=== PATIENT | female | born 1985 | race Caucasian/White ===

== ENCOUNTER 2024-06-11 20:56 | Observation (INO) | payer BC, SELFPAY ==
[2024-06-11 15:22] VITALS: BP 160/97; BMI 32.4
[2024-06-11 15:42] LABS: % Basophils 0.4 % (0-2); % Immature Granulocytes 0.4 % (0-0.5); % Lymphocytes 16.4 % (20.5-51.1); % Monocytes 5.7 % (1.7-9.3); % Neutrophils 76.1 % (42.2-75.2); Absolute Basophils 0.1 10^3/uL (0-0.2); Absolute Eosinophils 0.1 10^3/uL (0-0.7); Absolute Immature Granulocytes 0.1 10^3/uL (0-0.05); Absolute Lymphocytes 2.3 10^3/uL (1.2-3.4); Absolute Monocytes 0.8 10^3/uL (0.1-0.6); Absolute Neutrophils 10.7 10^3/uL (1.4-6.5); Hematocrit 38.5 % (37.0-47.0); Hemoglobin 13.8 g/dL (12.0-16.0); Mean Corp Hgb Conc. 35.8 g/dL (33.0-37.0); Mean Corpuscular Volume 83.7 fL (81.0-99.0); Mean Platelet Volume 9.4 fL (7.4-10.4); Nucleated Red Blood Cells % 0 %; Platelet Count 320 10^3/uL (130-400); Red Cell Dist. Width 11.9 % (11.5-14.5); White Blood Cell Count 14.1 10^3/uL (4.8-10.8)
[2024-06-11 15:54] LABS: ALT (SGPT) 104 U/L (0-35); AST (SGOT) 39 U/L (14-36); Albumin 4.3 g/dl (3.5-5.0); Alkaline Phosphatase 138 U/L (38-126); Blood Urea Nitrogen 4 mg/dl (7-17); Calcium 9.4 mg/dl (8.4-10.2); Carbon Dioxide 25 mmol/L (22-30); Chloride 106 mmol/L (98-107); Estimated Creatinine Clearance 98 ml/min; Glucose 107 mg/dl (70-99); Lipase 56 U/L (23-300); Potassium 3.7 mmol/L (3.5-5.1); Sodium 138 mmol/L (135-145); Total Bilirubin 0.5 mg/dl (0.2-1.3); Total Protein 7.1 g/dl (6.3-8.2); eGFR > 60.00
--- NOTE | 2024-06-11 16:43 | ED.GENMED ---
History of Present Illness
General
Chief Complaint: Abdominal Pain
Time Seen by Provider: 06/11/24 16:43
History of Present Illness
History of Present Illness:
HPI: The patient presents with upper abdominal pain without nausea, vomiting, or diarrhea. This started 3 days ago but was never really severe. Yesterday she barely had a discomfort. The pain is in the upper abdomen equally on the right, center,
and left. She has no lower discomfort. She does have a history of GERD and took Mylanta today and started taking omeprazole yesterday. She went to urgent care who suspected GERD. She does take Ozempic and was concerned about the possibility of
pancreatitis as well.
EXAM:
GENERAL: Well appearing in no distress
HEENT: Moist oral mucosa
CARDIOVASCULAR: No murmurs, normal heart rate, regular rhythm, No chest wall tenderness
PULMONARY: No respiratory distress, breath sounds are clear and equal
ABDOMEN: Soft with no peritoneal signs, no tenderness, negative Rutherford sign
NEUROLOGIC: Excellent strength all extremities, no coordination deficits
PSYCHIATRIC: Appropriate mental status, normal insight and judgement
EXTREMITIES: Nontender, no edema, moves all extremities equally
SKIN: No rash, no lesions
TIME OF INITIAL ENCOUNTER: 4:50 PM
NUMBER AND COMPLEXITY OF PROBLEMS ADDRESSED AT THE ENCOUNTER
� Chronic conditions affecting care: Denies any significant past medical history, history of GERD
� Acute Exacerbation and/or Progression of Chronic Illness: This is an acute problem
� Differential Diagnosis includes: Exacerbation of GERD, pancreatitis has been ruled out based on lipase, cholecystitis, biliary colic
AMOUNT AND/OR COMPLEXITY OF DATA TO BE REVIEWED AND ANALYZED
� I performed an independent evaluation of and my interpretation is:
EKG:
CT:
X-rays:
Laboratory Studies: AST 39, ALT 104, white count elevated 14.1. Otherwise chemistries unremarkable.
Other: Ultrasound imaging shows gallstones with no sign of cholecystitis
� Review of other/old records: No old records available for review in [facility]
� Clinical information was obtained by an independent historian: I spoke to sister at bedside
� Prescriptions/Medications Considered but not given:
� Further testing considered but not performed: Considered CT imaging however the patient has no tenderness on exam and symptoms are only located in the upper abdomen.
RISK OF COMPLICATIONS AND/OR MORBIDITY OR MORTALITY OF PATIENT MANAGEMENT
� Social determinants of health affecting care: Lives at home
� Discussion with other providers: Discussed case with Dr. Dawn who accepts to his service for further management and recommend Zosyn, n.p.o.
� Escalation of care including admission/observation vs risk of discharge considered: The patient presents with upper abdominal discomfort but has no tenderness on exam. However she does have a elevated white count along with
some mild transaminase elevation. Ultrasound imaging to be obtained. She appears very comfortable on initial evaluation. On reevaluation around 8 PM, the patient has recurrence of pain and request something for pain. Dr. Elizondo recommend she
stay in the hospital.
Phy Exam
Physical Exam
Physical Exam:
See HPI
Course
Orders/Labs/Results
Orders:
Orders
06/11/24 15:33
Complete Blood Count/With Diff Urgent
Comprehensive Metabolic Panel Urgent
Lipase Urgent
06/11/24 16:44
US Abdomen Complete/Upper Urgent
Comment:
Reason For Exam: upper pain abnormal LFTs and WBC 14
06/11/24 19:58
0.9% Sodium Chloride 1000 ml [Nss] 1,000 ml IV BOLUS
HYDROmorphone [Dilaudid] 1 mg IV NOW STA
Piperacillin/Tazo 3.375 Gram [Zosyn] 3.375 gram in 50 ml IV NOW
06/11/24 20:33
Admit/Transfer Patient As Directed
Co-Sign Provider:
Level of Care: Observation services
Assign to:: Medical/Surgical
Physician / Group: Dr. Jacques Dawn
Diagnosis: CHOLELITHIASIS
PRN Pain Medication Management As Directed
May give lesser potent ordered pain med per pt: Yes
preference::
Protocol:: Medication orders for pain may be administered in a
manner that supports deferring to patient preference
when the pt is:
- Requesting an ordered lesser potent pain medication.
Least to most potent pain medications are defined
as: acetaminophen < NSAID < tramadol < opioids
(morphine, oxycodone, hydromorphone).
- Requesting a lesser dose of the same medication IF
ORDERED.
- Requesting a less intrusive route of administration
if both routes are prescribed by the provider (PO <
IV).
06/11/24 20:35
Code Status As Directed
Resuscitation Status: Full Code
Abnormal Lab Results
06/11/24
15:33
WBC 14.1 H 10^3/uL
(4.8-10.8)
Abs Immat Gran (auto) 0.1 H 10^3/uL
(0-0.05)
Absolute Neuts (auto) 10.7 H 10^3/uL
(1.4-6.5)
Absolute Monos (auto) 0.8 H 10^3/uL
(0.1-0.6)
Neutrophils % 76.1 H %
(42.2-75.2)
Lymphocytes % 16.4 L %
(20.5-51.1)
BUN 4 L mg/dl
(7-17)
Glucose 107 H mg/dl
(70-99)
AST 39 H U/L
(14-36)
ALT 104 H U/L
(0-35)
Alkaline Phosphatase 138 H U/L
(38-126)
06/11/24 15:33
06/11/24 15:33
Vital Signs
Initial and Last Documented VS:
Initial Vital Signs
Temp Pulse Resp BP Pulse Ox
99.5 F 99 18 160/97 100
06/11/24 15:22 06/11/24 15:22 06/11/24 15:22 06/11/24 15:22 06/11/24 15:22
Last Documented Vital Signs
Temp Pulse Resp BP Pulse Ox
99.2 F 103 18 140/98 96
06/11/24 19:16 06/11/24 19:16 06/11/24 19:16 06/11/24 19:16 06/11/24 19:16
*Critical Care Note
Total Time (30-74mins, 75-104mins- exclusive of procedures): Not Applicable
ED Attending Note
-
Portions of this chart may have been created with voice recognition software.� Occasional wrong word or��sound alike� substitutions may have occurred due to the inherent limitations of voice recognition software.
Discharge Plan
Departure
Patient Disposition: Admit
Date of Disposition: 06/11/24
Time of Disposition: 19:56
Presentation/result/management discussed w/ accepting MD/: turner
Discharge Problem:
Symptomatic cholelithiasis
Prescriptions:
No Action
Ozempic 0.25 mg or 0.5 mg (2 mg/3 mL) Pen Injector
0.25 mg SC QWEEK
Rx Instructions:
for 4 weeks
Referrals:
Deanna Castellanos NP [Family Provider] -
Discharge Date and Time
Print Language: PORTUGUESE
[2024-06-11 17:26] VITALS: BP 161/99
[2024-06-11 17:34] VITALS: BP 167/97
[2024-06-11 19:16] VITALS: BP 140/98
[2024-06-11] MEDS: DILAUDID 1 MG IV (20:09)
[2024-06-11] MEDS: NSS 1000 IV ×2 (20:16→22:04)
[2024-06-11] MEDS: ZOSYN 50 IV (20:17)
--- NOTE | 2024-06-11 20:43 | HPS.HSE ---
Addendum entered and electronically signed by Martir Gonsalves MD 06/12/24 10:23:
I saw and examined the patient independently.
The Stripper Cutter Machine's note was reviewed and I agree with the note, assessment and plan except where noted below.
Comment: This is a 38-year-old female currently on Ozempic who presents with a 4-day history of intermittent postprandial right upper quadrant abdominal pain. Ultrasound, blood work and exam all consistent with acute cholecystitis versus biliary
colic.
Will plan for a laparoscopic cholecystectomy in the OR today.
Risks/Benefits/Alternatives, expected postoperative course and possible complications (bleeding, infection, injury to surrounding structures, acute/chronic pain) discussed at length. Patient wishes to proceed with surgery. All questions answered.
Consent obtained.
I spent roughly 60 minutes in total for the care of this patient today including direct patient care and counseling, reviewing labs, imaging, coordination of care, as well as documentation.
Original Note:
Family Physician
-
Family Physician: Deanna Castellanos
Chief Complaint
-
Abdominal pain
History of Present Illness
Patient is a 38-year-old female with not significant past medical history. Patient is currently taking Ozempic 0.25mg weekly for weight loss. Patient presented to [place] ED today for evaluation of abdominal discomfort that started three days
ago. She stated that morning she started with generalized pain throughout abdomen that was 'burning.' It progressed to RUQ and LUQ with sharp pain. She stated that she tried Mylanta with minimal improvement. She maintained generalized
burning pain throughout abdomen and sharp pain in upper quadrants since onset . She denies anything specific that makes it better or worse. She did say yesterday she felt relativity symptom free yesterday, but pain returned this morning.
Over the three days she attempted going to ER 2x and left following too long of a wait, and went to Urgent Care where they sent her home with a diagnosis of gastric reflux. She denies chest pain, shortness of breath, nausea, vomiting, diarrhea,
constipation, fevers, and no urinary discomfort. Appetite has not been effected. She reports last menstrual period on 06/05/2024. Patient to be admitted to Dr. López maldonado.
Medical History
Past Medical History
Past Medical History: Reports None
Past Surgical History: Reports None
Social History
Tobacco: Non-smoker
Alcohol: Occasional (weekends)
Drug: None
Personal:
Living: With Family
Employment: Employed
Family History
Family History: Other (mom - cholecystectomy; uncle - gallstones)
Allergies / Home Medications
Allergies reflects when Allergies were last updated in [employer].
Home Medications with original date entered in [employer]
Allergy/Medication List:
Allergies
Allergy/AdvReac Type Severity Reaction Status Date / Time
No Known Allergies Allergy Unverified 06/11/24 15:25
Home Medications Table - record
�Medication �Instructions �Recorded �Confirmed
semaglutide 0.25 mg or 0.5 mg (2 0.25 mg SC QWEEK 06/11/24 06/11/24
mg/3 mL) subcutaneous pen injector
(Ozempic)
Review of Systems
-
History Source: Patient
A 12 point ROS was completed and negative except as noted: Yes
Constitutional: Reports No Symptoms
EENT: Reports No Symptoms
Respiratory: Reports No Symptoms
Cardiac: Reports No Symptoms
Abdomen/GI: Reports Abdominal Pain and Pain
: Reports No Symptoms
Musculoskeletal: Reports No Symptoms
Skin: Reports No Symptoms
Neurological: Reports No Symptoms
Endocrine: Reports No Symptoms
Hematologic/Lymphatic: Reports No Symptoms
Psych: Reports No Symptoms and Calm
Physical Exam
Vital Signs
Vital Signs
Temp Pulse Resp BP Pulse Ox
99.2 F 103 18 140/98 96
06/11/24 19:16 06/11/24 19:16 06/11/24 19:16 06/11/24 19:16 06/11/24 19:16
Physical Exam
General: Well Developed, Well Nourished, No Apparent Distress, Conversant and Pain
HEENT: NormoCephalic, Moist mucous membranes, PERRLA, Mertzon Conjunctivae, Nose Appears Normal and Ears Appear Normal
Respiratory: Clear and Non Labored Respirations
Cardiac: S1/S2 and Regular Rhythm
Breast: Deferred by me
GI: Soft, Non Distended, Normal Bowel Sounds and Tender
Rectal: Deferred by Provider
Genito-urinary: Deferred by me
Musculoskeletal: No Clubbing, No Cyanosis, No Edema and Normal Gait & Station
Skin: Warm, Dry and IV/Catheter Site
Neuro: Awake and AO x 3
Hematologic/Lymphatic: No Lymphadenopathy
Psych: Calm and Intact Judgment/Insight
Laboratory Results
-
06/11/24 15:33
06/11/24 15:33
Laboratory Results
Total Bilirubin 0.5 mg/dl (0.2-1.3) 06/11/24 15:33
AST 39 U/L (14-36) H 06/11/24 15:33
ALT 104 U/L (0-35) H 06/11/24 15:33
Alkaline Phosphatase 138 U/L (38-126) H 06/11/24 15:33
Lipase 56 U/L (23-300) 06/11/24 15:33
Data Reviewed
-
Ultrasound: Report Reviewed by me, Discussed with Physician and Discussed with Patient
Lab Data: Discussed with Physician and Discussed with Patient
Impression/Plan
-
IMPRESSION:
Patient is a 38-year-old female with not significant past medical history. Patient is currently taking Ozempic 0.25mg weekly for weight loss. Patient presented to [place] ED today for evaluation of abdominal discomfort that started three days
ago. She stated that morning she started with generalized pain throughout abdomen that was 'burning.' It progressed to RUQ and LUQ with sharp pain. She stated that she tried Mylanta with minimal improvement. She maintained generalized
burning pain throughout abdomen and sharp pain in upper quadrants since onset . She denies anything specific that makes it better or worse. She did say yesterday she felt relativity symptom free yesterday, but pain returned this morning.
Over the three days she attempted going to ER 2x and left following too long of a wait, and went to Urgent Care where they sent her home with a diagnosis of gastric reflux. She denies chest pain, shortness of breath, nausea, vomiting, diarrhea,
constipation, fevers, and no urinary discomfort. Appetite has not been effected. She reports last menstrual period on 06/05/2024. Patient to be admitted to Dr. Dawn service.
PLAN:
#Cholelithiasis
- Admit to Dr. Dawn
- Zosyn
- NPO
- pain regimen
NPO
Full Code
DVT Prophylaxis: SCDs
[2024-06-11 22:00] VITALS: BMI 32.1
[2024-06-11 22:20] VITALS: BP 149/99
[2024-06-12] MEDS: ZOSYN 50 IV ×3 (02:01→14:24)
[2024-06-12] MEDS: DILAUDID 0.5 MG IV (02:13)
--- NOTE | 2024-06-12 04:40 | PTCARENOTE ---
Patient arrived to unit around 21:45 via stretcher with dx of Cholelithiasis. Upon arrival Patient states pain 1/10 in both upper quadrants of abdomen. Patient AAOX3. Pleasant and cooperative with care. Oriented to unit. Call colon with in reach.
Patients sister in room with patient.
[2024-06-12 07:40] VITALS: BP 120/82
[2024-06-12 08:24] LABS: % Basophils 0.5 % (0-2); % Eosinophils 1.2 % (0-6); % Immature Granulocytes 0.4 % (0-0.5); % Lymphocytes 27.7 % (20.5-51.1); % Monocytes 8.6 % (1.7-9.3); % Neutrophils 61.6 % (42.2-75.2); Absolute Eosinophils 0.1 10^3/uL (0-0.7); Absolute Lymphocytes 2.3 10^3/uL (1.2-3.4); Absolute Monocytes 0.7 10^3/uL (0.1-0.6); Hematocrit 32.9 % (37.0-47.0); Hemoglobin 11.4 g/dL (12.0-16.0); Mean Corp Hgb Conc. 34.7 g/dL (33.0-37.0); Mean Corpuscular Hgb 29.6 pg (27.0-31.0); Mean Corpuscular Volume 85.5 fL (81.0-99.0); Mean Platelet Volume 9.7 fL (7.4-10.4); Nucleated Red Blood Cells % 0 %; Platelet Count 265 10^3/uL (130-400); Red Blood Cell Count 3.85 10^6/uL (4.20-5.40); Red Cell Dist. Width 11.9 % (11.5-14.5); White Blood Cell Count 8.2 10^3/uL (4.8-10.8)
[2024-06-12] MEDS: NSS 1000 IV (08:38)
[2024-06-12 08:58] LABS: ALT (SGPT) 68 U/L (0-35); AST (SGOT) 25 U/L (14-36); Albumin 3.4 g/dl (3.5-5.0); Alkaline Phosphatase 116 U/L (38-126); Blood Urea Nitrogen 6 mg/dl (7-17); Calcium 8.4 mg/dl (8.4-10.2); Carbon Dioxide 22 mmol/L (22-30); Chloride 108 mmol/L (98-107); Estimated Creatinine Clearance 114 ml/min; Glucose 87 mg/dl (70-99); Potassium 3.8 mmol/L (3.5-5.1); Sodium 137 mmol/L (135-145); Total Bilirubin 0.8 mg/dl (0.2-1.3); eGFR > 60.00
--- NOTE | 2024-06-12 10:24 | W.SUR.PREOP ---
Pre-Operative Surgical Note
-
I have examined this patient prior to the performance of the scheduled procedure.
The patient's condition is unchanged from the time of the current History and
Physical and the patient is able to undergo the scheduled procedure.
--- NOTE | 2024-06-12 11:51 | W.IMMPOSTOP ---
Surgical Immed Post Op Note
-
Primary Surgeon: Martir Gonsalves MD
Assisting Surgeon: None
Pre-op Diagnosis: Acute cholecystitis
Post-op Diagnosis: Same
Procedure Performed: Laparoscopic cholecystectomy with cholangiogram
Anesthesia Type: General
Specimen / Cultures: Gallbladder and contents
Estimated Blood Loss: 7 cc
Complications: None
Operative Findings: Mildly inflamed gallbladder with thickened wall and edema in the hepatocystic triangle. A critical view of safety was obtained prior to a cholangiogram which demonstrated fairly long cystic duct and no filling defects. The duct
was ligated with the clip followed by a 0 PDS Endoloop.
POST OP PLAN:
Will discharge home off antibiotics today pending clinical course.
--- NOTE | 2024-06-12 11:52 | OR.RPT ---
Operative Report
Operative Report
Patient Name: Mylene Plummer
: 1985
Date of Operation: 06/12/2024
Preoperative Diagnosis: Acute cholecystitis
Postoperative Diagnosis: Same
Procedure(s):
Laparoscopic Cholecystectomy with Cholangiogram
Surgeon(s):
Dr. Gonsalves
Manager Distribution Center(s):
TRACEY Griffin
Anesthesia: General
Estimated Blood Loss: 7 cc
Urine Output: None
Drains/Lines/Implants: None
Specimens:
1. Gallbladder and contents
HPI/Surgical Indications:
This is a 38-year-old female who presents with a few days of right upper quadrant postprandial abdominal pain. Exam, labs and imaging are consistent with early acute cholecystitis. Risks/Benefits/Alternatives were discussed at length, and the
patient agreed to proceed with surgery.
Findings:
The patient was noted to have mild gallbladder inflammation and edema. A Critical View of Safety was obtained. A cholangiogram showed no filling defects in the biliary system with the Left, Right Anterior, Right posterior hepatic ducts, CHD, cystic
duct and CBD all identified. There was brisk flow of dye into the duodenum.
Procedure Description:
The patient was brought to the Operating Room and placed in the supine position with one arm tucked. Following uneventful induction of general endotracheal anesthesia, an orogastric tube was placed. The abdomen was prepped and draped in the usual
sterile fashion. A timeout was performed confirming the procedure, consent, and that IV antibiotics were infused and sequential compression devices were confirmed to be on. The abdomen was entered using an infraumbilical open Jude technique with a
12 mm trochar. Pneumoperitoneum to 15 mmHg pressure was obtained without difficulty and we confirmed that no injury had occurred during our entry. The patient was positioned in reverse Trendelenberg and rotated with the right side up slightly. Three
(3) 5mm trocars were then placed along the right subcostal margin. The gallbladder was slightly distended but we were able to place a locking grasping forceps was placed on the fundus of the gallbladder where it was then retracted cephalad and to
the right. Using appropriate grasping instruments, the peritoneum overlying the triangle of Calot was incised and extended superiorly on both the anterior and posterior gallbladder vincent. The infundibulum was dissected off the cystic plate. The
cystic triangle was dissected until a critical view of safety was achieved. The cystic artery was medialized, dissected and controlled with 2 proximal clips and 1 distal. The cystic duct/gallbladder junction in turn was identified, dissected
circumferentially and a clip was placed. A ductotomy was made and a cholangiocatheter on an Clark clamp was inserted into the cystic duct. A C-arm was draped and brought into the field. An intra-operative cholangiogram was performed and was noted to
have:
No filling defects in the biliary tree
No significant biliary dilation
Brisk flow of contrast into the duodenum
Long cystic duct but otherwise normal biliary anatomy
The catheter was then removed and the cystic duct was controlled with a clip followed by a 0 PDS Endoloop . After ensuring both the artery and duct were divided, the gallbladder was freed from the liver using electrocautery. There is no spillage
of bile or stones. The gallbladder bed was inspected and excellent hemostasis was obtained. The gallbladder was extracted through the 12 mm trocar site using an endocatch bag. The abdomen was again irrigated and excellent hemostasis was assured.
All remaining trocars were then removed and the pneumoperitoneum was evacuated. The 12 mm trocar site was closed using 0 PDS suture. All trocar sites were closed at the skin level using 4-0 Monocryl followed by Dermabond. Overall, the patient
tolerated the procedure well and was taken to the Recovery Room postoperatively in stable condition.
I was the attending physician and performed the procedure with assistance from the JOB FOREMAN above. I was present for all portions of the case
Martir Gonsalves MD
[2024-06-12 11:55] VITALS: BP 103/89; BP 120/82
[2024-06-12 12:00] VITALS: BP 125/77
[2024-06-12 13:00] VITALS: BP 124/74
--- NOTE | 2024-06-12 13:00 | PTCARENOTE ---
Patient returning from PACU. AAOx3. VSS Sat 97% on RA.
[2024-06-12 13:57] VITALS: BP 122/78
[2024-06-12 14:25] VITALS: BP 140/85
--- NOTE | 2024-06-12 14:41 | CM ---
Patient seen at bedside with .
Observation form signed & placed in chart.
Post-surgery -lap choli.
Patient lives at home with and daughter in a 2 story home 3 steps upstairs.
PLOF: Independent, driving
PCP: Deanna Castellanos
Pharmacy: [facility]
PLAN: Discharge today. No needs.
to transport.
== END 2024-06-12 16:54 | disposition home or self-care (01) ==
LOC: 4 WEST ACU 20:56
PROVIDERS: Emergency Medicine; Nurse Practitioner Family; ADMITTING PHYSICIAN Surgery; EMERGENCY PHYSICIAN Emergency Medicine; FAMILY PHYSICIAN Nurse Practitioner Adult Health
DX: K80.00 Calculus of gallbladder with acute cholecystitis without obstruction (principal); R10.9 Unspecified abdominal pain; R74.01 Elevation of levels of liver transaminase levels
CPT/HCPCS: 47563; 88304; 74300; 76000; 76700; 80053; 83690; 85025; 96365; 96375; 99285; G0378

== ENCOUNTER 2025-03-29 17:20 | Emergency (ER) | payer BC, SELFPAY ==
[2025-03-29 17:33] VITALS: BP 150/92
[2025-03-29 17:55] LABS: % Basophils 0.6 % (0-2); % Eosinophils 1.3 % (0-6); % Immature Granulocytes 0.3 % (0-0.5); % Lymphocytes 29.3 % (20.5-51.1); % Monocytes 6.8 % (1.7-9.3); % Neutrophils 61.7 % (42.2-75.2); Absolute Basophils 0.1 10^3/uL (0-0.2); Absolute Eosinophils 0.1 10^3/uL (0-0.7); Absolute Lymphocytes 2.9 10^3/uL (1.2-3.4); Absolute Monocytes 0.7 10^3/uL (0.1-0.6); Absolute Neutrophils 6.2 10^3/uL (1.4-6.5); Hematocrit 40.6 % (37.0-47.0); Hemoglobin 14.1 g/dL (12.0-16.0); Mean Corp Hgb Conc. 34.7 g/dL (33.0-37.0); Mean Corpuscular Hgb 29.9 pg (27.0-31.0); Mean Platelet Volume 9.5 fL (7.4-10.4); Nucleated Red Blood Cells % 0 %; Platelet Count 330 10^3/uL (130-400); Red Blood Cell Count 4.72 10^6/uL (4.20-5.40); Red Cell Dist. Width 11.9 % (11.5-14.5)
[2025-03-29 18:00] LABS: HCG, Serum Qualitative Screen Negative
[2025-03-29 18:04] LABS: ALT (SGPT) 20 U/L (0-35); AST (SGOT) 24 U/L (14-36); Albumin 4.4 g/dl (3.5-5.0); Alkaline Phosphatase 67 U/L (38-126); Blood Urea Nitrogen 6 mg/dl (7-17); Calcium 9.1 mg/dl (8.4-10.2); Carbon Dioxide 24 mmol/L (22-30); Chloride 110 mmol/L (98-107); Glucose 99 mg/dl (70-99); Potassium 4.1 mmol/L (3.5-5.1); Sodium 141 mmol/L (135-145); Total Bilirubin 0.4 mg/dl (0.2-1.3); Total Protein 7.3 g/dl (6.3-8.2); eGFR > 60.00
[2025-03-29 18:14] LABS: Troponin I < 0.012 ng/ml
[2025-03-29 21:29] VITALS: BMI 26.5
[2025-03-29 21:34] LABS: D-Dimer < 0.27 ug/mlFEU (0.00-0.50)
--- NOTE | 2025-03-30 00:14 | ED.GENMED ---
History of Present Illness
General
Chief Complaint: Chest Pain
Source: patient
Exam Limitations: none
Time Seen by Provider: 03/29/25 20:21
Nursing documentation reviewed up to this point in time: agreed with
History of Present Illness
History of Present Illness:
PPatient to ED with complaint of chest pain. Symptoms started on wednesday, resolved and then returned and are now intermittent. Describes pain as sharp. No associated n/v/diaphoresis. No SOB, cough. NO dizziness or blurred vision. No aggravating
or alleviating factors. To ED accompainied by spouse for eval.
Past History
Past History
ED Past Medical History: None
Review of Systems
Review of Systems
Allergies reviewed?: Yes
All Other Systems: ROS reviewed and negative except as documented in HPI and ROS
Constitutional: Reports no symptoms
EENT: Reports no symptoms
Respiratory: Reports no symptoms
Cardiac: Reports chest pain
ABD/GI: Reports no symptoms
: Reports no symptoms
Musculoskeletal: Reports no symptoms
Skin: Reports no symptoms
Neurological: Reports no symptoms
Psychiatric: Reports no symptoms
Phy Exam
General Physical Exam
General Presentation: well appearing and no apparent distress
General age: appears stated age
General Skin: warm and dry
General Habitus: normal
General Mental: alert
Cardiovascular Exam
Cardiovascular Exam: regular rate/rhythm and no edema
Pulmonary Exam
Pulmonary Exam: lungs clear and no respiratory distress
Musculoskeletal Exam
Musculoskeletal Exam: full ROM and neuro vasc intact
Skin Exam
Skin Exam: normal color, warm/dry and no rash
Psychiatric Exam
Psychiatric Exam: normal mood/affect
Scores
Heart Score for Chest Pain Patients
STEMI patient?: No
History: Slightly or Non-Suspicious
ECG: Normal
Age: </= 45 years
Risk Factors: No Risk Factors
Troponin: </= Normal Limit
Heart Score for Chest Pain Patients: 0
Heart Score Risk: 2.5% MACE over next 6 weeks
Course
Orders/Labs/Results
Orders:
Orders
03/29/25 17:21
ECG [Electrocardiogram (*1)] Urgent
Reason for Study: Chest Pain
EKG- Treatment ONCE
03/29/25 17:36
Test Result ONCE
03/29/25 17:43
Complete Blood Count/With Diff Urgent
Comprehensive Metabolic Panel Urgent
HCG, Serum Qualitative Screen Urgent
Troponin I Urgent
03/29/25 21:10
D-Dimer Urgent
Abnormal Lab Results
03/29/25
17:43
Absolute Monos (auto) 0.7 H 10^3/uL
(0.1-0.6)
Chloride 110 H mmol/L
(98-107)
BUN 6 L mg/dl
(7-17)
03/29/25 17:43
03/29/25 17:43
Vital Signs
Initial and Last Documented VS:
Initial Vital Signs
Temp Pulse Resp BP Pulse Ox
98.7 F 107 18 150/92 98
03/29/25 17:33 03/29/25 17:33 03/29/25 17:33 03/29/25 17:33 03/29/25 17:33
Last Documented Vital Signs
Temp Pulse Resp BP Pulse Ox
98.7 F 107 18 150/92 98
03/29/25 17:33 03/29/25 17:33 03/29/25 17:33 03/29/25 17:33 03/29/25 17:33
*Pulse Oximetry
Patient hypoxic: no
*EKG
Interpretation: normal
Rate: normal
Rhythm: sinus
*Critical Care Note
Total Time (30-74mins, 75-104mins- exclusive of procedures): Not Applicable
Update Note
Update Note:
Patient to ED with complaint of intermittent sharp chest pain. No aggravating or alleviating factors. No associated symptoms. She has remained pain free in ED. Labs reviewed, no concerning findings. troponin and ddimer both neg. EKG NSR. These
findings were discussed with her. Doubtful for cardiac event Will discharge home, she agrees to follw upwith PCP. Given instructions on s/s to return to ED and she is agreeable to plan.
ED Attending Note
-
Portions of this chart may have been created with voice recognition software.� Occasional wrong word or��sound alike� substitutions may have occurred due to the inherent limitations of voice recognition software.
Discharge Plan
Departure
Patient Disposition: Home (Routine Discharge)
Date of Disposition: 03/29/25
Time of Disposition: 21:40
Patient with high blood pressure during this ER visit?: No
Condition: Good
Covid-19: Not Applicable
Discharge Problem:
Chest pain
Instructions: Chest Pain That Is Not Caused by the Heart (DC), Chest Pain PCP Follow Up
Prescriptions:
No Action
Ozempic 0.25 mg or 0.5 mg (2 mg/3 mL) Pen Injector
0.25 mg SC QWEEK
Rx Instructions:
for 4 weeks
acetaminophen 325 mg tablet
650 mg PO Q6HPRN PRN (Reason: mild pain) Qty: 14 0RF
tramadol 50 mg tablet
25 mg PO Q6HPRN PRN (Reason: severe pain/breakthrough pain) Qty: 8 0RF
ibuprofen 600 mg tablet
600 mg PO Q6H PRN (Reason: pain) Qty: 14 0RF
Referrals:
Deanna Castellanos NP [Family Provider] - Tomorrow
Activity Restrictions/Additional Instructions:
Return to the emergency department for any changes in/worsening of your symptoms.
Interventions
Interventions:
*Risk Screen - Suicide Last Done: 03/29/25 17:33
*General Assessment Last Done: 03/29/25 17:33
*Neglect/Abuse Screening Last Done: 03/29/25 17:33
ED- Cardiac Assessment Last Done: 03/29/25 21:29
Discharge Date and Time
Print Language: TUNISIAN
== END 2025-03-29 22:55 | disposition home or self-care (01) ==
LOC: EMR 17:20
PROVIDERS: Emergency Medicine; Nurse Practitioner; EMERGENCY PHYSICIAN Student in an Organized Health Care Education/Training Program; FAMILY PHYSICIAN Nurse Practitioner Adult Health
DX: R07.9 Chest pain, unspecified (principal)
CPT/HCPCS: 99284; 80053; 84484; 84703; 85025; 85379; 93005